=== PATIENT | female | born 1995 | race Caucasian/White ===

== ENCOUNTER 2017-01-30 13:10 | Emergency (ER) | payer MEDICAID ==
[~2017-01-30] VITALS: Ht 147.3 cm; Wt 94.3 kg
[2017-01-30] MEDS ORDERED: SODIUM CHLORIDE 0.9% 1,000 ML IV ONE (13:56)
[2017-01-30] MEDS ORDERED: FAMOTIDINE 20 MG/2 ML IVP ONE (14:00)
[2017-01-30] MEDS ORDERED: SODIUM CHLORIDE 0.9% 1,000ML IVBOLUS ONE (14:00)
[2017-01-30] MEDS ORDERED: ONDANSETRON 2MG/ML, 2ML IVPush ONE (14:00)
[2017-01-30] MEDS ORDERED: MORPHINE SULFATE 4 MG/ML, 1ML IVPush PRN (14:00)
[2017-01-30 14:24] LABS: ASPARTATE AMINO TRANSFERASE 23 U/L (15-37); BLOOD UREA NITROGEN 10 mg/dL (7-18)
[2017-01-30] MEDS ORDERED: MORPHINE SULFATE 4 MG/ML, 1ML ONE (14:34)
[2017-01-30] MEDS ORDERED: ONDANSETRON 2MG/ML, 2ML ONE (14:34)
[2017-01-30] MEDS ORDERED: FAMOTIDINE 20 MG/2 ML ONE (14:34)
[2017-01-30 14:43] LABS: HEMATOCRIT 43.8 % (34.6-47.8); HEMOGLOBIN 14.6 g/dL (11.7-16.4); WHITE BLOOD COUNT 14.1 x10^3/uL (4.5-13.2)
[2017-01-30] MEDS ORDERED: OMNIPAQUE 350 MG/ML, 100ML BOTTLE ONE (16:28)
[2017-01-30] MEDS ORDERED: MAALOX/HYOSCYAMINE/LIDOCAINE 45 ML BTL PO ONE (17:00)
[2017-01-30] MEDS ORDERED: MAALOX/HYOSCYAMINE/LIDOCAINE 45 ML BTL ONE (17:14)
[2017-01-30 17:36] VITALS: BP 118/75
== END 2017-01-30 17:39 | disposition home or self-care (01) ==
LOC: ED 14:25
DX: K29.00 Acute gastritis without bleeding (principal); N39.0 Urinary tract infection, site not specified; Z88.0 Allergy status to penicillin
CPT/HCPCS: 36415; 74177; 76700; 80053; 81001; 83690; 84703; 85025; 87086; 96361; 96374; 96375; 99285; J2405; J7030; Q9967; S0028

== ENCOUNTER 2017-02-20 19:19 | Emergency (ER) | payer MEDICAID ==
[~2017-02-20] VITALS: Ht 147.3 cm; Wt 93.9 kg
[2017-02-20 19:21] VITALS: BP 122/78
== END 2017-02-20 20:32 | disposition home or self-care (01) ==
LOC: ED 20:15
DX: M25.362 Other instability, left knee (principal); X58.XXXA Exposure to other specified factors, initial encounter; Y93.67 Activity, basketball; Y99.8 Other external cause status; Y92.89 Other specified places as the place of occurrence of the external cause
CPT/HCPCS: 29505; 99284

== ENCOUNTER 2017-11-10 18:25 | Emergency (ER) | payer SELFPAY ==
[~2017-11-10] VITALS: Ht 144.8 cm; Wt 88.0 kg
[2017-11-10 18:27] VITALS: BP 127/81
[2017-11-10] MEDS ORDERED: MECLIZINE CHEWABLE 25 MG TAB ONE (18:41)
[2017-11-10] MEDS ORDERED: ONDANSETRON ODT 4 MG ONE (18:42)
[2017-11-10 19:00] LABS: BASOPHILS # (AUTO) 0.04 x10^3/uL (0-0.3); BASOPHILS % (AUTO) 0 % (0-1); EOSINOPHILS # (AUTO) 0.05 x10^3/uL (0-0.8); EOSINOPHILS % (AUTO) 1 % (1-7); LYMPHOCYTES # (AUTO) 3.15 x10^3/uL (1-6.1); LYMPHOCYTES % (AUTO) 32 % (22-44); MD NO; MEAN CORPUSCULAR HGB CONC 34.1 g/dL (32.4-35.8); MEAN PLATELET VOLUME 7.9 fL (7.4-10.4); MONOCYTES # (AUTO) 0.57 x10^3/uL (0-1.4); MONOCYTES % (AUTO) 6 % (2-9); NEUTROPHILS # (AUTO) 5.99 x10^3/uL (1.8-8.0); NEUTROPHILS % (AUTO) 61 % (42-75); PLATELET COUNT 257 x10^3/uL (130-400); RED BLOOD COUNT 4.56 x10^6/uL (3.82-5.3); RED CELL DISTRIBUTION WIDTH 13.7 % (9.6-15.2)
[2017-11-10] MEDS ORDERED: ONDANSETRON ODT 4 MG PO ONE (19:00)
[2017-11-10] MEDS ORDERED: MECLIZINE CHEWABLE 25 MG TAB PO ONE (19:00)
[2017-11-10 19:04] LABS: ALBUMIN 3.7 g/dL (3.4-5.0); ANION GAP 5 mmol/L (5-15); CALCIUM 8.8 mg/dL (8.5-10.1); CHLORIDE 110 mmol/L (98-107); CREATININE 0.86 mg/dL (0.55-1.02)
== END 2017-11-10 20:29 | disposition home or self-care (01) ==
LOC: ED 20:00
DX: R42 Dizziness and giddiness (principal)
CPT/HCPCS: 36415; 80048; 82040; 84703; 85025; 93005; 99285; Q0162